=== PATIENT | male | born 1970 | race Caucasian/White ===

== ENCOUNTER 2017-10-19 18:26 | Emergency (ER) | payer BC ==
[2017-10-19 21:37] LABS: BASO # 0.1 x10^3/uL (0.0-0.2); BASO % 1 % (0-3); EOS % 0 % (0-3); HEMATOCRIT 36.8 % (39.0-53.0); HEMOGLOBIN 12.5 g/dL (13.0-17.5); LYMPH # 1.1 x10^3/uL (1.0-4.8); LYMPH % 8 % (24-48); MEAN CORPUSCULAR HEMOGLOBIN 29 pg (25-35); MEAN CORPUSCULAR HGB CONC 34 g/dL (31-37); MEAN CORPUSCULAR VOLUME 85 fL (79-100); MONO # 0.5 x10^3/uL (0.0-1.1); MONO % 4 % (0-9); NEUT # 12.5 x10^3uL (1.8-7.7); NEUT % 88 % (31-73); PLATELET COUNT 312 x10^3/uL (140-400); RED BLOOD COUNT 4.35 x10^6/uL (4.30-5.70); RED CELL DISTRIBUTION WIDTH 15.4 % (11.5-14.5); WHITE BLOOD COUNT 14.2 x10^3/uL (4.0-11.0)
[2017-10-19 21:38] LABS: ADD MAN DIFF? YES
[2017-10-19] MEDS: ONDANSETRON PF 4 MG/2 ML VIAL. IV ×2 (21:47→23:22)
[2017-10-19] MEDS: fentaNYL PF VIAL 100 MCG/2 ML VIAL IV (21:48)
[2017-10-19] MEDS: LABETALOL 20 MG/4 ML DISP.SYRIN. IVP ×2 (21:49→23:35)
[2017-10-19 21:53] LABS: ANION GAP 10 (6-14); BLOOD UREA NITROGEN 14 mg/dL (8-26); BUN/CREATININE RATIO 14 (6-20); CALCIUM 8.6 mg/dL (8.5-10.1); CARBON DIOXIDE 28 mmol/L (21-32); CHLORIDE 100 mmol/L (98-107); GFR 80.4; GLUCOSE 360 mg/dL (70-99); POTASSIUM 4.3 mmol/L (3.5-5.1); SODIUM 138 mmol/L (136-145)
[2017-10-19 21:54] LABS: % BANDS 3 % (0-9); % EOS 1 % (0-5); % LYMPHS 2 % (24-48); % MONOS 6 % (0-10); % SEGS 88 % (35-66)
[2017-10-19 21:56] LABS: PLT ESTIMATE ADEQUATE (ADEQUATE); TOXIC GRANULATION MOD
[2017-10-19 21:58] LABS: TROPONINI < 0.017 ng/mL (0.000-0.055)
[2017-10-19 22:00] LABS: ALBUMIN 2.4 g/dL (3.4-5.0); ALBUMIN/GLOBULIN RATIO 0.5 (1.0-1.7); ALK PHOS 79 U/L (46-116); ALT (SGPT) 31 U/L (16-63); AST (SGOT) 17 U/L (15-37); TOTAL BILIRUBIN 0.7 mg/dL (0.2-1.0)
[2017-10-19 22:03] LABS: CKMB INDEX 1.9 % (0-4); CKMB MASS 1.8 ng/mL (0.0-3.6); CREATINE KINASE 93 U/L (39-308)
[2017-10-19] MEDS ORDERED: cefTRIAXone SODIUM 2 GM in IV DEXTROSE 5% 100 ML IV (22:30)
[2017-10-19] MEDS: cefTRIAXone IV Push 2 GM VIAL. IVP (23:08)
[2017-10-19] MEDS: MORPHINE SULFATE 4 MG/ML DISP.SYRIN. IV (23:23)
[2017-10-19 23:29] LABS: CSF PROTEIN 36.1 mg/dL (15.0-45.0)
[2017-10-19 23:29] LABS: CSF GLUCOSE 180 mg/dL (37-70)
[2017-10-19] MEDS: LIDOCAINE 2%/EPI 1:100,000 20 ML VIAL. IJ (23:35)
[2017-10-19 23:44] LABS: CSF CLARITY CLEAR; CSF COLOR COLORLESS; CSF TUBE # 3
[2017-10-19 23:45] LABS: CSF RBC COUNT 134; CSF VOLUME 1.5
[2017-10-19 23:46] LABS: CSF WBC COUNT 2
[2017-10-20] MEDS: INSULIN REGULAR 100 UNIT/ML 3ML VIAL. IV (01:00)
[2017-10-20 01:15] LABS: PARTIAL THROMBOPLASTIN TIME 24 SEC (24-38); PROTHROMBIN TIME PATIENT 12.7 SEC (11.7-14.0)
[2017-10-20] MEDS ORDERED: MORPHINE SULFATE 4 MG/ML DISP.SYRIN. IV (02:15)
[2017-10-20] MEDS ORDERED: ONDANSETRON PF 4 MG/2 ML VIAL. IV (02:15)
[2017-10-22 20:12] LABS: HERPES SIMPLEX TYPE 1 Negative (Negative); HERPES SIMPLEX TYPE 2 Negative (Negative)
== END 2017-10-20 01:59 | disposition short-term general hospital (02) ==
LOC: ER 10-20 01:59
DX: R51 Headache (principal); R11.2 Nausea with vomiting, unspecified; I10 Essential (primary) hypertension; E11.65 Type 2 diabetes mellitus with hyperglycemia; E78.00 Pure hypercholesterolemia, unspecified; R83.9 Unspecified abnormal finding in cerebrospinal fluid
CPT/HCPCS: 36415; 62270; 70450; 80053; 82553; 82945; 84157; 84484; 85007; 85025; 85610; 85730; 87071; 87075; 87205; 87529; 89051; 93005; 96374; 96375; 96376; 99285-25; 99291-25; J0696; J1815; J2270; J2405; J3010; J3490